=== PATIENT | female | born 1990 | race Two or more races ===

== ENCOUNTER 2019-06-21 02:31 | Emergency (ER) | payer OTHER ==
[~2019-06-21] VITALS: Ht 170.2 cm; Wt 81.6 kg
--- NOTE | 2019-06-21 02:47 | NUR ---
PT AAOX4. AMBULATORY. C/O SEVERE HEADACHE X2DAYS AND LOWER BACK PAIN. PT PLACED ON MONITOR AND PULSE OX. NO ACUTE DISTRESS NOTED. AWAITING MD FOR EVAL.
[2019-06-21] MEDS ORDERED: SUMATRIPTAN SUCCINATE 6 MG/0.5 ML VIAL SQ ONE ×2 (03:30→03:38)
[2019-06-21] MEDS ORDERED: IV NS 0.9% 1,000 ML BAG IV ONE (03:30)
[2019-06-21] MEDS ORDERED: METOCLOPRAMIDE HCL 10 MG/2 ML VIAL IV ONE (03:30)
[2019-06-21] MEDS ORDERED: methylPREDNISolone SOD SUCC 125 MG/2ML VIAL IV ONE (03:30)
[2019-06-21] MEDS ORDERED: KETOROLAC TROMETHAMINE INJ 30 MG/ML VIAL IV ONE (03:30)
[2019-06-21] MEDS ORDERED: methylPREDNISolone SOD SUCC 125 MG/2ML VIAL ONE (03:38)
[2019-06-21] MEDS ORDERED: METOCLOPRAMIDE HCL 10 MG/2 ML VIAL ONE (03:38)
[2019-06-21] MEDS ORDERED: KETOROLAC TROMETHAMINE 15 MG/ML VIAL ONE (03:38)
--- NOTE | 2019-06-21 03:44 | NUR ---
BLOOD COLLECTED AND SENT TO LAB
[2019-06-21] MEDS ORDERED: SUMATRIPTAN SUCCINATE 25 MG TABLET ONE (03:47)
[2019-06-21] MEDS ORDERED: SUMATRIPTAN SUCCINATE 25 MG TABLET PO ONE (04:00)
--- NOTE | 2019-06-21 04:29 | NUR ---
PT AMBULATED TO RESTROOM
--- NOTE | 2019-06-21 04:35 | NUR ---
Patient discharged to home in stable condition. Written and verbal after care instructions given. Patient verbalizes understanding of instruction and RX. IV removed. Catheter intact and site benign. Pressure and 4x4 applied to site. No bleeding noted. PT ambulatory with a steady gait.
[2019-06-21 04:36] VITALS: BP 118/78
== END 2019-06-21 04:38 | disposition home or self-care (01) ==
LOC: ER 02:33
DX: G43.909 Migraine, unspecified, not intractable, without status migrainosus (principal)
CPT/HCPCS: 87804 ×2; 96374; 96375; 99283; J1885; J2765; J2930; J7030; J3030

== ENCOUNTER 2020-12-24 08:32 | Emergency (ER) | payer OTHER ==
[~2020-12-24] VITALS: Ht 170.2 cm; Wt 86.2 kg
[2020-12-24 08:35] VITALS: BP 130/91
[2020-12-24] MEDS ORDERED: LIDOCAINE 1%-EPI 1:100,000 20 ML VIAL ONE (08:42)
[2020-12-24] MEDS ORDERED: TDAP [DIPH/PERTUSSIS/TET] 0.5 ML VIAL IM ONE (08:59)
[2020-12-24] MEDS: TDAP [DIPH/PERTUSSIS/TET] 0.5 ML VIAL IM ONE (09:11)
[2020-12-24] MEDS: LIDOCAINE 1%-EPI 1:100,000 20 ML VIAL TP ONE (09:11)
== END 2020-12-24 09:13 | disposition home or self-care (01) ==
LOC: ER 08:34
DX: S61.011A Laceration without foreign body of right thumb without damage to nail, initial encounter (principal); G43.909 Migraine, unspecified, not intractable, without status migrainosus; W26.0XXA Contact with knife, initial encounter; Y93.E8 Activity, other personal hygiene; Y92.89 Other specified places as the place of occurrence of the external cause; Y99.8 Other external cause status
CPT/HCPCS: 12001; 90471; 90715; 99283; J3490